=== PATIENT | male | born 1980 | race African-American/Black ===

== ENCOUNTER 2017-07-08 21:39 | Emergency (ER) | payer OTHER ==
[~2017-07-08] VITALS: Ht 182.9 cm; Wt 83.9 kg
[~2017-07-08 21:39] MED LIST: ACCUNEB SO1.25 MG/1; ACYCLOVIR15 GM TP; APAP/CODEI12 MG/5 ML PO; BACTRIM DS TAB1 EACH PO; IBUPROFEN 600600 M1 PO; KEFLEX500 MG PO; NORCO 5-325 TA1 EACH PO; PROVENTIL HFA6.7 G1 INH; VIBRAMYCIN 100100 MG PO; [UNRECOGNIZED DRUG - REMARK]
[2017-07-08] MEDS ORDERED: DOXYCYCLINE 10100 MG PO (23:33)
[2017-07-08] MEDS ORDERED: HIBICLENS118 ML TOP (23:35)
== END 2017-07-09 | disposition home or self-care (01) ==
LOC: ER 21:39
DX: L01.00 Impetigo, unspecified (principal); J32.9 Chronic sinusitis, unspecified; F17.210 Nicotine dependence, cigarettes, uncomplicated; F12.10 Cannabis abuse, uncomplicated; Z88.0 Allergy status to penicillin; Z91.013 Allergy to seafood